=== PATIENT | male | born 1990 | race Caucasian/White ===

== ENCOUNTER 2019-11-11 10:04 | Emergency (ER) | payer SELFPAY ==
[~2019-11-11] VITALS: Ht 185.4 cm; Wt 72.6 kg
[2019-11-11] MEDS ORDERED: OMEPRAZOLE20 MG PO (11:04)
--- NOTE | 2019-11-11 19:47 | EKG ---
[facility] [address] [facility] [facility] [place], [place] [address] Signed Sinus tachycardia Otherwise normal ECG No previous ECGs available Confirmed by MOLINA SHAFER DO ([id number]) on 11/11/2019 7:47:18 PM Electronically Signed By: MOLINA SHAFER DO 11/11/191946 PATIENT NAME: YOKO KNIGHT Electrocardiogram DATE OF : [birth year] PHYSICIAN: MOLINA SHAFER DO REPORT #: [id number] REPORT IS CONFIDENTIAL AND NOT TO BE RELEASED WITHOUT AUTHORIZATION
== END 2019-11-11 11:27 | disposition home or self-care (01) ==
LOC: ED 10:04
DX: R07.9 Chest pain, unspecified (principal); R10.13 Epigastric pain; F17.200 Nicotine dependence, unspecified, uncomplicated; Z88.8 Allergy status to other drugs, medicaments and biological substances
CPT/HCPCS: 71046; 93005; 93010; 99285-25